=== PATIENT | female | born 1995 | race Caucasian/White ===

== ENCOUNTER 2016-03-26 13:43 | Emergency (ER) | payer OTHER ==
--- NOTE | 2016-03-26 14:36 | ED Physician Documentation ---
Female Urogenital Problems - HISTORIAN Historian: patient - HPI Stated Complaint: Urinary Symptoms Chief Complaint: Female Urogenital Problems Onset: days ago (1) Severity: mild Further Comments: yes (Has been having some ithching in the vaginal area for 3 days, has a slight discharge which is at baseline. LNMP 03/10/16. Has some slight blood with wiping due to irritation.) - Vaginal Bleeding Contraceptive: BCP's - Associated Symptoms Urinary Symptoms: blood in urine, burning w/ urination. denies: frequent urination Discharge: vaginal discharge - ROS CONST: none, no problems. denies: fever, chills GI/: denies: nausea, vomiting, diarrhea - PAST HX Past History: none Other History: none Surgeries/Procedures: none Allergies/Adverse Reactions: Allergies Allergy/AdvReac Type Severity Reaction Status Date / Time No Known Allergies Allergy Unverified 03/26/16 14:53 Home Medications: Ambulatory Orders Medication Instructions Recorded Fluconazole [Diflucan] 150 mg PO NOW #1 tablet 03/26/16 NK [NK] 03/26/16 - SOCIAL HX Smoking History: non-smoker Alcohol Use: none Drug Use: none - FAMILY HX Family History: none - VITAL SIGNS Vital Signs: Vital Signs Temp Pulse Resp BP Pulse Ox 97.1 F L 78 18 136/81 99 03/26/16 13:45 03/26/16 13:45 03/26/16 13:45 03/26/16 13:45 03/26/16 13:45 - REVIEWED ASSESSMENTS Nursing Assessment Reviewed: Yes Vitals Reviewed: Yes Female Urogenital Problems - EXAM General Appearance: no acute distress, alert Neck: nml inspection Respiratory: no resp. distress, breath sounds nml. No: wheezes, rales, rhonchi CVS: reg rate & rhythm, heart sounds normal, equal pulses, no murmur, no gallop Abdomen: soft, non-tender, no organomegaly. No: guarding, rebound, abnml bowel sounds Back: No: CVA tenderness Skin: color nml, no rash Neuro: mood/affect nml, cognition normal Discharge Clincal Impression: Monial infection of vagina Prescriptions: Fluconazole [Diflucan] 150 mg PO NOW #1 tablet Referrals: Primary Doctor,No [Primary Care Provider] - 2 Days Additional Instructions: Take Diflucan as directed, may repeat times one if needed. Home Medications: Ambulatory Orders Fluconazole [Diflucan] 150 mg PO NOW #1 tablet 03/26/16 NK [NK] 03/26/16 Condition: Stable Disposition: HOME, SELF-CARE Decision to Admit: NO Date of Decison to Admit: 03/26/16 Decision Time: 14:43
[2016-03-26 15:00] VITALS: BP 120/68
[2016-03-26 19:46] LABS: APPEARANCE,URINE CLEAR (CLEAR); COLOR,URINE YELLOW (YELLOW); OCCULT BLOOD,URINE NEGATIVE (NEGATIVE); PH URINE 6.5 (5.0 - 8.0); UROBILINOGEN URINE 0.2 Eu (0.2-1.0)
== END 2016-03-26 14:58 | disposition home or self-care (01) ==
LOC: ED 13:43
DX: B37.3 Candidiasis of vulva and vagina (principal)
CPT/HCPCS: 81002; 87088; 99283